=== PATIENT | male | born 1980 | race Two or more races ===

== ENCOUNTER 2022-09-12 00:09 | Emergency (ER) | payer OTHER ==
[~2022-09-12] VITALS: Ht 177.8 cm; Wt 80.7 kg
[2022-09-12] MEDS ORDERED: DOLOGESIC 500-1 EACH PO (04:54)
== END 2022-09-12 05:18 ==
LOC: ER 00:09
DX: R07.9 Chest pain, unspecified (principal); R51.9 Headache, unspecified; Z20.822 Contact with and (suspected) exposure to COVID-19

== ENCOUNTER 2025-01-23 09:26 | Emergency (ER) | payer OTHER ==
[~2025-01-23] VITALS: Ht 177.8 cm; Wt 76.2 kg
[~2025-01-23 09:26] MED LIST: DOLOGESIC 500-1 EACH PO
[2025-01-23] MEDS ORDERED: KETOROLAC TROMETHAMINE 30 MG VIAL IM STA (10:31)
[2025-01-23] MEDS ORDERED: DEXAMETHASONE SODIUM PHOSPHATE 4 MG/ML VIAL IM STA (10:31)
[2025-01-23] MEDS ORDERED: KETOROLAC TROMETHAMINE 30 MG VIAL ONE (10:33)
[2025-01-23] MEDS ORDERED: DEXAMETHASONE SODIUM PHOSPHATE 4 MG/ML VIAL ONE (10:33)
== END 2025-01-23 10:43 | disposition home or self-care (01) ==
LOC: ER 09:27
DX: M54.89 Other dorsalgia (principal)